=== PATIENT | female | born 1990 | race Caucasian/White ===

== ENCOUNTER 2022-01-29 16:23 | Emergency (ER) | payer SELFPAY ==
[2022-01-29] MEDS ORDERED: IBUPROFEN600 MG PO (20:58)
== END 2022-01-29 21:15 | disposition home or self-care (01) ==
LOC: ER1 16:23
DX: S93.401A Sprain of unspecified ligament of right ankle, initial encounter (principal); W01.10XA Fall on same level from slipping, tripping and stumbling with subsequent striking against unspecified object, initial encounter; Y92.830 Public park as the place of occurrence of the external cause
CPT/HCPCS: 73610; 99283